=== PATIENT | male | born 1945 | race Caucasian/White ===

== ENCOUNTER 2019-01-22 06:16 | Inpatient (IN) | payer BC, MEDICARE, OTHER ==
[~2019-01-22] VITALS: Ht 172.7 cm; Wt 81.6 kg
[~2019-01-22 06:16] MED LIST: CELE100C PO; DULO30CA2 PO; FURO-152 PO; METH-490 PO; POTA20TA29 PO
[2019-01-22] MEDS ORDERED: [UNRECOGNIZED DRUG - REMARK] (06:23)
--- NOTE | 2019-01-22 06:30 | NUR ---
PT AMBULATORY W/ STABLE GAIT C/O SOB FOR 1WK PT ABLE TO SPEAK CLEAR AND COMPLETE SENTENCES, AOX4 DENIES FEVERS/CHILLS/N/V/D DENIES RECENT TRAVELS DENIES COUGHING + HX OF COPD AND ASTHMA, +EXPIRATORY WHEEZES ON BOTH LOWER LUNG ARREGUIN + SMOKER 2-3 PCS PER DAY SIDERAILSX2 UP BED AT LOWEST POSITION MONITORED ACCORDINGLY SPO2 AT 95-96%, RR AT 19 HR AT 82 BP AT 151/83MMHG
[2019-01-22] MEDS ORDERED: ALBUTEROL SULFATE 2.5 MG/3 ML NEBU NEB ONE (07:00)
[2019-01-22] MEDS ORDERED: methylPREDNISolone SOD SUCC 125 MG/2 ML VIAL IV ONE (07:00)
[2019-01-22] MEDS ORDERED: IPRATROPIUM BROMIDE 0.5 MG/2.5 ML NEBU NEB ONE (07:00)
[2019-01-22] MEDS ORDERED: methylPREDNISolone SOD SUCC 125 MG/2 ML VIAL ONE (07:09)
[2019-01-22] MEDS ORDERED: IPRATROPIUM BROMIDE 0.5 MG/2.5 ML NEBU ONE (07:11)
[2019-01-22] MEDS ORDERED: ALBUTEROL SULFATE 2.5 MG/ 0.5 ML NEBU ONE (07:11)
[2019-01-22 07:21] LABS: BASOPHILS # (AUTO) 0.1 K/uL (0.0-8.0); BASOPHILS % (AUTO) 1.2 % (0.0-2.0); EOSINOPHILS # (AUTO) 0.3 K/uL (0.0-0.7); EOSINOPHILS % (AUTO) 4.1 % (0.0-7.0); HEMATOCRIT 37.5 % (36.7-47.1); HEMOGLOBIN 12.8 g/dL (12.5-16.3); LYMPHOCYTES # (AUTO) 1.8 K/uL (20.0-40.0); LYMPHOCYTES % (AUTO) 25.4 % (20.5-51.5); MEAN CORPUSCULAR HEMOGLOBIN 30.1 uug (23.8-33.4); MEAN CORPUSCULAR HGB CONC 34 g/dL (32.5-36.3); MEAN CORPUSCULAR VOLUME 88.5 fL (73.0-96.2); MONOCYTES # (AUTO) 0.6 K/uL (2.0-10.0); MONOCYTES % (AUTO) 9.1 % (0.0-11.0); NEUTROPHILS # (AUTO) 4.3 K/uL (1.8-8.9); NEUTROPHILS % (AUTO) 60.2 % (38.5-71.5); PLATELET COUNT (AUTO) 249 K/uL (152-348); RED BLOOD CELL COUNT(AUTO) 4.24 MIL/uL (4.06-5.63); WHITE BLOOD COUNT (AUTO) 7.1 K/uL (3.6-10.2)
--- NOTE | 2019-01-22 07:22 | NUR ---
CONTROL TECHNICIAN AT BEDSIDE RT AT BEDSIDE
[2019-01-22 07:28] LABS: POTASSIUM 3.7 mmol/L (3.5-5.1)
--- NOTE | 2019-01-22 07:37 | NUR ---
HAND OFF AND SBAR GIVEN TO INCOMING DAY SHIFT RN (MAGAN) PT CURRENTLY RECEIVING BREATHING TX, ON POSITION OF COMFORT NOT IN DISTRESS MONITORED ACCORDINGLY
[2019-01-22 07:41] LABS: BILIRUBIN,DIRECT 0.1 mg/dL (0.0-0.2); BILIRUBIN,TOTAL 0.3 mg/dL (0.2-1.0); TOTAL PROTEIN, SERUM 6.9 g/dL (6.4-8.2)
[2019-01-22] MEDS ORDERED: HYDR12.5 PO (08:43)
[2019-01-22] MEDS ORDERED: LOSA25TA27 PO (08:43)
[2019-01-22] MEDS ORDERED: UMEC1BLS IH (08:43)
[2019-01-22] MEDS ORDERED: DEXT5TAB15 PO (08:43)
[2019-01-22] MEDS ORDERED: FLUT1DIS28 IH (08:43)
[2019-01-22] MEDS ORDERED: ACETAMINOPHEN 325 MG TABLET PO PRN (10:00)
[2019-01-22] MEDS ORDERED: ONDANSETRON 4 MG/2 ML VIAL IV PRN (10:00)
[2019-01-22] MEDS ORDERED: Z GUARD REMEDY PASTE 57 GM TUBE TOP PRN (10:00)
[2019-01-22] MEDS ORDERED: MAGNESIUM HYDROXIDE 30 ML LIQUID UDC PO PRN (10:00)
--- NOTE | 2019-01-22 10:40 | NUR ---
Patient received from ER Report taken from Nalini EVANS ; patient in stable condition with no signs of distress; Patient diagnosed with COPD ; Patient expressed he did not want any 02 given as he was not experiencing any SOB ; Patient saturation between 94-95% ; patient will continue to be monitored.
[2019-01-22 10:44] LABS: *BILIRUBIN,URIN NEGATIVE (NEGATIVE); *BLOOD, URINE NEGATIVE (NEGATIVE); *CLARITY,URINE CLEAR (CLEAR); *COLOR,URINE YELLOW (YELLOW); *KETONES,URINE NEGATIVE (NEGATIVE); *UROBILINOGEN,URINE 0.2 E.U./dl (NORMAL); LEUKOCYTE ESTERASE ,URINE NEGATIVE (NEGATIVE); NITRITE, URINE NEGATIVE (NEGATIVE); UGLUCOSE NEGATIVE (NEGATIVE)
[2019-01-22 11:07] LABS: *AMPHETAMINE, URINE POSITIVE (NEGATIVE); *BARBITURATE, URINE NEGATIVE (NEGATIVE); *CANNABINOID, URINE NEGATIVE (NEGATIVE); *COCCAINE, URINE NEGATIVE (NEGATIVE); *OPIATE, URINE NEGATIVE (NEGATIVE); *PHENCYCLIDINE SCREEN,URINE NEGATIVE (NEGATIVE)
[2019-01-22 11:17] VITALS: BP 144/90
[2019-01-22] MEDS: ALBUTEROL SULFATE 2.5 MG/3 ML NEBU NEB SCH ×4 (11:49→23:23)
[2019-01-22] MEDS: IPRATROPIUM BROMIDE 0.5 MG/2.5 ML NEBU NEB SCH ×4 (11:49→23:23)
[2019-01-22] MEDS: LEVOFLOXACIN 500 MG/D5W 500 MG in PREMIXED 1 EACH IV SCH (12:23)
[2019-01-22] MEDS: ENOXAPARIN SODIUM 40 MG/0.4 ML DISP.SYRIN SQ SCH (12:48)
[2019-01-22] MEDS: FLUTICASONE/VILANTEROL 1 EACH BLST.W.DEV INH SCH (12:48)
[2019-01-22] MEDS ORDERED: METH-490 PO (14:37)
[2019-01-22] MEDS: methylPREDNISolone SOD SUCC 40 MG/ML VIAL IV SCH ×2 (14:50→21:52)
[2019-01-22 15:43] VITALS: BP 143/74
[2019-01-22] MEDS ORDERED: FLUTICASONE/SALMETEROL 250/50 INHALER IH SCH (17:00)
[2019-01-22] MEDS ORDERED: methylPREDNISolone SOD SUCC 40 MG/ML VIAL IV SCH (17:00)
--- NOTE | 2019-01-22 17:59 | NUR ---
Patient calm and comfortable with no signs of distress through out shift; patient expressed he has narcolepsy and patient took multiple naps throughout shift. Patient at bedside at times; patient will continue to be monitored; Report given to oncoming nurse.
[2019-01-22] MEDS: LOSARTAN POTASSIUM 25 MG TABLET PO SCH (20:01)
[2019-01-22 20:26] VITALS: BP 162/88
[2019-01-22 21:17] VITALS: BP 135/75
[2019-01-23 01:21] VITALS: BP 142/84
[2019-01-23] MEDS: ALBUTEROL SULFATE 2.5 MG/3 ML NEBU NEB SCH ×6 (02:47→23:03)
[2019-01-23] MEDS: IPRATROPIUM BROMIDE 0.5 MG/2.5 ML NEBU NEB SCH ×6 (02:47→23:03)
[2019-01-23 04:45] VITALS: BP 132/75
[2019-01-23] MEDS: methylPREDNISolone SOD SUCC 40 MG/ML VIAL IV SCH ×3 (05:39→20:03)
--- NOTE | 2019-01-23 05:51 | NUR ---
Patient slept well throughout the night. No acute distress noted. Attended all needs. Ensured safety and comfort. No complaints made. No other untoward events noted. Will endorse accordingly.
[2019-01-23 06:10] LABS: BASOPHILS % (AUTO) 0.1 % (0.0-2.0); HEMATOCRIT 42.7 % (36.7-47.1); HEMOGLOBIN 14.1 g/dL (12.5-16.3); LYMPHOCYTES # (AUTO) 0.6 K/uL (20.0-40.0); LYMPHOCYTES % (AUTO) 4.6 % (20.5-51.5); MEAN CORPUSCULAR HEMOGLOBIN 29.1 uug (23.8-33.4); MEAN CORPUSCULAR HGB CONC 33 g/dL (32.5-36.3); MEAN CORPUSCULAR VOLUME 87.8 fL (73.0-96.2); MONOCYTES # (AUTO) 0.3 K/uL (2.0-10.0); MONOCYTES % (AUTO) 2.1 % (0.0-11.0); NEUTROPHILS # (AUTO) 11.8 K/uL (1.8-8.9); NEUTROPHILS % (AUTO) 93.2 % (38.5-71.5); PLATELET COUNT (AUTO) 302 K/uL (152-348); RED BLOOD CELL COUNT(AUTO) 4.86 MIL/uL (4.06-5.63); WHITE BLOOD COUNT (AUTO) 12.7 K/uL (3.6-10.2)
[2019-01-23 06:28] LABS: CREATININE 0.9 mg/dL (0.6-1.3); MAGNESIUM 1.7 mg/dL (1.8-2.4); PHOSPHOROUS 2.5 mg/dL (2.5-4.9); POTASSIUM 4.4 mmol/L (3.5-5.1)
[2019-01-23 06:46] LABS: THYROID STIMULATING HORMONE 0.178 mIU/mL (0.358-3.740)
[2019-01-23] MEDS: HYDROCHLOROTHIAZIDE 12.5 MG CAPSULE PO SCH (08:28)
[2019-01-23] MEDS: FLUTICASONE/VILANTEROL 1 EACH BLST.W.DEV INH SCH (08:28)
[2019-01-23] MEDS: LOSARTAN POTASSIUM 25 MG TABLET PO SCH ×2 (08:29→20:03)
[2019-01-23] MEDS: ENOXAPARIN SODIUM 40 MG/0.4 ML DISP.SYRIN SQ SCH (08:31)
[2019-01-23] MEDS ORDERED: AZITHROMYCIN 250 MG TABLET PO SCH (09:00)
--- NOTE | 2019-01-23 09:24 | NUR ---
MAG LEVEL IS 1.7 CARLEY AIR EXPORT COORDINATOR AWARE WITH NEW ORDER AND NOTED.
[2019-01-23] MEDS ORDERED: MAGNESIUM OXIDE 400 MG TABLET PO ONE (09:30)
[2019-01-23 11:20] VITALS: BP 140/86
[2019-01-23] MEDS: LEVOFLOXACIN 500 MG/D5W 500 MG in PREMIXED 1 EACH IV SCH (12:14)
--- NOTE | 2019-01-23 14:38 | NUR ---
DR LONG HERE TO SEE AND EXAMINE PATIENT WITH NEW ORDERS AND NOTED.
[2019-01-23 15:22] VITALS: BP 140/87
[2019-01-23] MEDS ORDERED: METHAMPHETAMINE HCL 5 MG PO SCH (16:30)
--- NOTE | 2019-01-23 17:04 | NUR ---
REMAIN ON ATB ORDERED WITH NO ADVERSE OR ALLERGIC REACTIONS AT THIS TIME ON ROOM AIR WITH NO SHPORTNESS OF BREATH MADE COMFORTABLE WILL CONTINUE TO OBSERVE.
--- NOTE | 2019-01-23 19:20 | NUR ---
Received pt awake, alert and orientedx4. Pt shows no signs of acute distress. Iv intact. Safety and comfort provided. Will continue to monitor.
[2019-01-23 20:19] VITALS: BP 134/85
--- NOTE | 2019-01-23 22:28 | NUR ---
Hands off report to Sridevi EVANS. Pt in no acute distress. Pt given his $100. Pt signed the belonging list. Safety and comfort provided. Will continue to monitor.
--- NOTE | 2019-01-23 22:30 | NUR ---
Received hand off report from nurse Mai. Received patient into care sitting up in bed, watching television. Patient has no complaints of pain or discomfort at this time. All safety and fall precaution measures are in place. Call light and personal items are within reach at all times. Will continue to monitor.
[2019-01-24 00:40] VITALS: BP 140/72
[2019-01-24] MEDS: IPRATROPIUM BROMIDE 0.5 MG/2.5 ML NEBU NEB SCH ×5 (02:50→19:12)
[2019-01-24] MEDS: ALBUTEROL SULFATE 2.5 MG/3 ML NEBU NEB SCH ×5 (02:50→19:12)
[2019-01-24 04:00] VITALS: BP 133/64
--- NOTE | 2019-01-24 06:04 | NUR ---
Patient slept intermittently throughout night with no complaints of [place] or discomfort verbalized. All nursing needs were met promptly. All safety and fall precaution measures remain in place. Call light and personal items remain within reach at all times.
[2019-01-24 06:52] LABS: CREATININE 0.8 mg/dL (0.6-1.3); MAGNESIUM 2.1 mg/dL (1.8-2.4); PHOSPHOROUS 3.4 mg/dL (2.5-4.9); POTASSIUM 4.1 mmol/L (3.5-5.1)
[2019-01-24 07:15] LABS: HEMATOCRIT 43.5 % (36.7-47.1); HEMOGLOBIN 14.4 g/dL (12.5-16.3); LYMPHOCYTES # (AUTO) 0.7 K/uL (20.0-40.0); LYMPHOCYTES % (AUTO) 3.8 % (20.5-51.5); MEAN CORPUSCULAR HEMOGLOBIN 29.4 uug (23.8-33.4); MEAN CORPUSCULAR HGB CONC 33 g/dL (32.5-36.3); MEAN CORPUSCULAR VOLUME 88.8 fL (73.0-96.2); MONOCYTES # (AUTO) 0.5 K/uL (2.0-10.0); MONOCYTES % (AUTO) 2.9 % (0.0-11.0); NEUTROPHILS # (AUTO) 17.2 K/uL (1.8-8.9); NEUTROPHILS % (AUTO) 93.3 % (38.5-71.5); PLATELET COUNT (AUTO) 299 K/uL (152-348)
[2019-01-24 07:29] LABS: WHITE BLOOD COUNT (AUTO) 18.4 K/uL (3.6-10.2)
--- NOTE | 2019-01-24 07:30 | NUR ---
RECEIVED PATIENT IN BED AWAKE ALERT AND ORIENTED ON ROOM AIR WITH NO SHORTNESS OF BREATH AT THIS TIME CONTINUE ON ATB ORDERED WITH S/S OF ADVERSE OR ALLERGIC REACTIONS AT THIS TIME.HAS OCCASSIONAL DRY COUGH UNABLE TO EXPECTORATE CALL LIGHTS AND PERSOANL BELONGINGS ARE WITHIN EASY REACH AT THIS TIME MADE COMFORTABLE AND WILL CONTINUE TO OBSERVE.
[2019-01-24] MEDS: methylPREDNISolone SOD SUCC 40 MG/ML VIAL IV SCH (08:30)
[2019-01-24] MEDS: HYDROCHLOROTHIAZIDE 12.5 MG CAPSULE PO SCH (08:30)
[2019-01-24] MEDS: LOSARTAN POTASSIUM 25 MG TABLET PO SCH (08:31)
[2019-01-24] MEDS: FLUTICASONE/VILANTEROL 1 EACH BLST.W.DEV INH SCH (08:32)
[2019-01-24] MEDS: ENOXAPARIN SODIUM 40 MG/0.4 ML DISP.SYRIN SQ SCH (08:42)
[2019-01-24] MEDS: LEVOFLOXACIN 500 MG/D5W 500 MG in PREMIXED 1 EACH IV SCH (11:25)
[2019-01-24 11:31] VITALS: BP 115/62
--- NOTE | 2019-01-24 11:56 | NUR ---
patient seen and examined by dr fernandes foam charger with order to d/d telemetry and noted.
--- NOTE | 2019-01-24 14:00 | NUR ---
SEEN BY CARLEY ALFARO STATED THAT SHE WILL KEEP PATIENT ONE MORE DAY TO OBSERVE HIM OFF THE IV STEROIDS PATIENT AWARE OF PLAN OF CARE.
[2019-01-24 15:26] VITALS: BP 140/83
--- NOTE | 2019-01-24 16:45 | NUR ---
RESTING WITH HAND HELD NEBULIZER IN PROGRESS ORDERED AND HELPFUL WILL CONTINUE TO OBSERVE.
[2019-01-24] MEDS ORDERED: prednisoLONE 15 MG/5 ML UDC PO SCH (17:00)
--- NOTE | 2019-01-24 18:38 | NUR ---
RESTING DENIES SHORTNESS OF BREATH VALERIA DINNER WITH NO C/O AT THIS TIME.
[2019-01-24 20:00] VITALS: BP 151/91
--- NOTE | 2019-01-24 20:10 | NUR ---
Patient notified nurse that he would like to "check out" of hospital. Nurse questioned patient reason for wanting to leave. Patient advised that his mom is in [facility] and is very ill. Nurse explained AMA without waiting for physician. Patient adamant to leave due to h is mom's illness. Patient was presented with AMA form and signed.
--- NOTE | 2019-01-24 20:38 | NUR ---
Patient left floor with sister. All belongings returned and signed for, including contraband and money from [employer]. IV site d/c'd.
== END 2019-01-24 20:56 | disposition left against medical advice (07) | DRG 192 ==
LOC: ER 06:20 → TELE3 10:19 → MEDSURG3 01-24 10:00
PROVIDERS: ADMIT Registered Nurse; ATTEND Registered Nurse
DX: J44.1 Chronic obstructive pulmonary disease with (acute) exacerbation (principal); J44.0 Chronic obstructive pulmonary disease with (acute) lower respiratory infection; J20.9 Acute bronchitis, unspecified; E66.9 Obesity, unspecified; Z68.27 Body mass index [BMI] 27.0-27.9, adult; K21.9 Gastro-esophageal reflux disease without esophagitis; G47.419 Narcolepsy without cataplexy; F32.9 Major depressive disorder, single episode, unspecified; F17.210 Nicotine dependence, cigarettes, uncomplicated; Z96.642 Presence of left artificial hip joint; D64.9 Anemia, unspecified; E11.9 Type 2 diabetes mellitus without complications; I70.0 Atherosclerosis of aorta; Z79.899 Other long term (current) drug therapy; Z87.01 Personal history of pneumonia (recurrent); I45.10 Unspecified right bundle-branch block; I10 Essential (primary) hypertension; D72.829 Elevated white blood cell count, unspecified; T38.0X5A Adverse effect of glucocorticoids and synthetic analogues, initial encounter; Y92.230 Patient room in hospital as the place of occurrence of the external cause
CPT/HCPCS: 36415; 70030-TC; 71045; 80307; 83735; 84100; 84443; 85025; 93005; 93307; 94640; 94664; A4663; G0378; J1650; J1956; J2920; J2930; J3590; J7030; J7050; J7510

== ENCOUNTER 2019-03-10 05:58 | Emergency (ER) | payer BC ==
[~2019-03-10] VITALS: Ht 172.7 cm; Wt 81.6 kg
[~2019-03-10 05:58] MED LIST changes: -CELE100C PO; +DEXT5TAB15 PO; -DULO30CA2 PO; +FLUT1DIS28 IH; -FURO-152 PO; +HYDR12.5 PO; +LOSA25TA27 PO; -POTA20TA29 PO; +UMEC1BLS IH
--- NOTE | 2019-03-10 06:05 | NUR ---
Dr. Salcedo at bedside for MSE
[2019-03-10] MEDS ORDERED: IPRATROPIUM BROMIDE 0.5 MG/2.5 ML NEBU NEB ONE (06:30)
[2019-03-10] MEDS ORDERED: ALBUTEROL SULFATE 2.5 MG/3 ML NEBU NEB ONE (06:30)
--- NOTE | 2019-03-10 06:33 | NUR ---
Respiratory at bedside.
[2019-03-10] MEDS ORDERED: ALBUTEROL SULFATE 2.5 MG/ 0.5 ML NEBU ONE (06:34)
[2019-03-10] MEDS ORDERED: IPRATROPIUM BROMIDE 0.5 MG/2.5 ML NEBU ONE (06:34)
[2019-03-10 06:45] LABS: BASOPHILS # (AUTO) 0.1 K/uL (0.0-8.0); BASOPHILS % (AUTO) 0.9 % (0.0-2.0); EOSINOPHILS # (AUTO) 0.4 K/uL (0.0-0.7); EOSINOPHILS % (AUTO) 5.6 % (0.0-7.0); HEMATOCRIT 41.6 % (36.7-47.1); HEMOGLOBIN 13.9 g/dL (12.5-16.3); LYMPHOCYTES # (AUTO) 1.9 K/uL (20.0-40.0); LYMPHOCYTES % (AUTO) 28.1 % (20.5-51.5); MEAN CORPUSCULAR HEMOGLOBIN 29.8 uug (23.8-33.4); MEAN CORPUSCULAR HGB CONC 33 g/dL (32.5-36.3); MEAN CORPUSCULAR VOLUME 89.4 fL (73.0-96.2); MONOCYTES # (AUTO) 0.7 K/uL (2.0-10.0); MONOCYTES % (AUTO) 10.2 % (0.0-11.0); NEUTROPHILS # (AUTO) 3.8 K/uL (1.8-8.9); NEUTROPHILS % (AUTO) 55.2 % (38.5-71.5); PLATELET COUNT (AUTO) 266 K/uL (152-348); RED BLOOD CELL COUNT(AUTO) 4.65 MIL/uL (4.06-5.63); WHITE BLOOD COUNT (AUTO) 6.8 K/uL (3.6-10.2)
[2019-03-10 06:47] LABS: CREATININE 0.9 mg/dL (0.6-1.3)
--- NOTE | 2019-03-10 06:49 | NUR ---
Dr. Salgado at bedside for MSE
[2019-03-10] MEDS ORDERED: predniSONE 20 MG TABLET ONE (06:52)
[2019-03-10] MEDS ORDERED: predniSONE 20 MG TABLET PO ONE (07:00)
--- NOTE | 2019-03-10 08:22 | NUR ---
Pt states feeling better, 02 sat on RA is 96% that per pt is "very good".
[2019-03-10 08:36] VITALS: BP 129/67
--- NOTE | 2019-03-10 08:36 | NUR ---
Patient discharged to home in stable conditon. Written and verbal after care instructions given. Patient verbalizes understanding of instructions.
== END 2019-03-10 08:36 | disposition home or self-care (01) ==
LOC: ER 06:00
DX: J44.1 Chronic obstructive pulmonary disease with (acute) exacerbation (principal); K21.9 Gastro-esophageal reflux disease without esophagitis; F32.9 Major depressive disorder, single episode, unspecified; F17.290 Nicotine dependence, other tobacco product, uncomplicated; Z79.899 Other long term (current) drug therapy
CPT/HCPCS: 36415; 80048; 85025; 87400; 93005; 94644; 99285; 99406; J7512; A4663; J3590

== ENCOUNTER 2021-04-30 16:57 | Inpatient (IN) | payer BC ==
[~2021-04-30] VITALS: Ht 170.2 cm; Wt 78.2 kg
[~2021-04-30 16:57] MED LIST changes: -UMEC1BLS IH
[2021-04-30] MEDS ORDERED: AMLO10TA59 PO (17:04)
[2021-04-30] MEDS ORDERED: FURO-152 PO (17:04)
[2021-04-30] MEDS ORDERED: ATOR40TA PO (17:04)
[2021-04-30] MEDS ORDERED: FLUT1BLS6 IH (17:05)
[2021-04-30] MEDS ORDERED: MORPHINE SULFATE 4 MG/1 ML DISP.SYRIN IV ONE (18:45)
[2021-04-30] MEDS ORDERED: ONDANSETRON 4 MG/2 ML VIAL IV ONE (18:45)
[2021-04-30] MEDS ORDERED: MORPHINE SULFATE 4 MG/1 ML DISP.SYRIN ONE (18:55)
[2021-04-30] MEDS ORDERED: ONDANSETRON 4 MG/2 ML VIAL ONE (18:55)
[2021-04-30 19:11] LABS: CARBON DIOXIDE 32 mmol/L (21-32); CHLORIDE 101 mmol/L (98-107); GLUCOSE 112 mg/dL (74-106); HEMATOCRIT 31.4 % (36.7-47.1); MEAN CORPUSCULAR HEMOGLOBIN 30.2 uug (23.8-33.4); MEAN CORPUSCULAR VOLUME 89.7 fL (73.0-96.2); PLATELET COUNT (AUTO) 355 K/uL (152-348); POTASSIUM 4.1 mmol/L (3.5-5.1); UREA NITROGEN, BLOOD 17 mg/dL (7-18)
[2021-04-30 19:25] LABS: ALANINE AMINOTRANSFERASE 27 U/L (16-63); ALKALINE PHOSPHATASE 95 U/L (50-136); ASPARTATE AMINOTRANSFERASE 13 U/L (15-37); BILIRUBIN,DIRECT 0.1 mg/dL (0.0-0.2); BILIRUBIN,TOTAL 0.4 mg/dL (0.2-1.0); TOTAL PROTEIN, SERUM 7.2 g/dL (6.4-8.2)
[2021-04-30] MEDS ORDERED: VANCOMYCIN 1G/D5W 200 ML PIGGYBACK IV ONE (19:30)
[2021-04-30] MEDS ORDERED: CEFTRIAXONE 1 G in IV DEXTROSE 5% 50 ML IV ONE (19:30)
[2021-04-30] MEDS ORDERED: CEFTRIAXONE /D5W 50ML IVPB **ER PYXIS IV ONE (19:48)
[2021-04-30 20:00] VITALS: BP 129/78
[2021-04-30] MEDS ORDERED: VANCOMYCIN IV 200 ML ONE (20:09)
[2021-04-30] MEDS ORDERED: ACETAMINOPHEN 325 MG TABLET PO PRN (20:15)
[2021-04-30] MEDS ORDERED: MAGNESIUM HYDROXIDE 30 ML LIQUID UDC PO PRN (20:15)
[2021-04-30] MEDS ORDERED: REMEDY ESSENTIAL ZINC PASTE 113 GM TP PRN (20:15)
[2021-04-30] MEDS ORDERED: ONDANSETRON 4 MG/2 ML VIAL IV PRN (20:15)
[2021-04-30] MEDS: ATORVASTATIN 40 MG TABLET PO SCH (22:29)
[2021-04-30] MEDS ORDERED: CEFEPIME HCL 1 G VIAL ONE (22:55)
[2021-04-30] MEDS: CEFEPIME HCL 2 G in IV DEXTROSE 5% 100 ML IV SCH (23:06)
[2021-05-01] VITALS: BP 136/76
[2021-05-01 04:00] VITALS: BP 123/71
[2021-05-01] MEDS ORDERED: CEFEPIME HCL 1 G VIAL ONE (06:21)
[2021-05-01 06:47] LABS: MEAN CORPUSCULAR HEMOGLOBIN 29.8 uug (23.8-33.4); MEAN CORPUSCULAR VOLUME 89.8 fL (73.0-96.2); PLATELET COUNT (AUTO) 322 K/uL (152-348)
[2021-05-01 07:23] LABS: CREATININE 0.8 mg/dL (0.6-1.3); MAGNESIUM 1.8 mg/dL (1.8-2.4); PHOSPHOROUS 3.4 mg/dL (2.5-4.9)
[2021-05-01] MEDS ORDERED: METHYLPHENIDATE HCL 5 MG TABLET PO ONE (07:30)
[2021-05-01] MEDS ORDERED: METHYLPHENIDATE HCL 5 MG TABLET PO SCH ×2 (07:30→11:30)
[2021-05-01] MEDS: CEFEPIME HCL 2 G in IV DEXTROSE 5% 100 ML IV SCH ×3 (07:35→21:22)
[2021-05-01] MEDS: HYDROCHLOROTHIAZIDE 12.5 MG CAPSULE PO SCH (08:47)
[2021-05-01] MEDS: FUROSEMIDE 40 MG/4 ML VIAL IV SCH (08:47)
[2021-05-01 08:50] VITALS: BP 99/49
[2021-05-01] MEDS: AMLODIPINE 10 MG TABLET PO SCH (08:53)
[2021-05-01 12:00] VITALS: BP 96/53
[2021-05-01] MEDS: VANCOMYCIN IV 1,250 MG in IV DEXTROSE 5% 250 ML IV SCH (12:32)
[2021-05-01 16:00] VITALS: BP 116/58
[2021-05-01] MEDS: TRELEGY ELLIPTA INHALER INH SCH (16:59)
[2021-05-01 20:18] VITALS: BP 108/62
[2021-05-01] MEDS: ATORVASTATIN 40 MG TABLET PO SCH (20:34)
[2021-05-02 00:12] VITALS: BP 103/55
[2021-05-02] MEDS: VANCOMYCIN IV 1,250 MG in IV DEXTROSE 5% 250 ML IV SCH ×2 (02:15→19:49)
[2021-05-02 04:21] VITALS: BP 120/70
[2021-05-02] MEDS: CEFEPIME HCL 2 G in IV DEXTROSE 5% 100 ML IV SCH ×3 (05:12→22:11)
[2021-05-02 07:14] LABS: HEMATOCRIT 29.4 % (36.7-47.1); MEAN CORPUSCULAR HEMOGLOBIN 30.5 uug (23.8-33.4); MEAN CORPUSCULAR VOLUME 88.9 fL (73.0-96.2); PLATELET COUNT (AUTO) 337 K/uL (152-348)
[2021-05-02 07:37] LABS: POTASSIUM 3.9 mmol/L (3.5-5.1)
[2021-05-02] MEDS ORDERED: METHAMPHETAMINE PO SCH ×2 (09:00→14:00)
[2021-05-02] MEDS: FUROSEMIDE 40 MG/4 ML VIAL IV SCH (09:26)
[2021-05-02] MEDS: HYDROCHLOROTHIAZIDE 12.5 MG CAPSULE PO SCH (09:26)
[2021-05-02] MEDS: TRELEGY ELLIPTA INHALER INH SCH (09:26)
[2021-05-02] MEDS: AMLODIPINE 10 MG TABLET PO SCH (09:27)
[2021-05-02 12:00] VITALS: BP 102/50
[2021-05-02] MEDS ORDERED: TRELEGY ELLIPTA INHALER INH SCH (14:01)
[2021-05-02 16:00] VITALS: BP 101/64
[2021-05-02] MEDS: ATORVASTATIN 40 MG TABLET PO SCH (20:29)
[2021-05-03] MEDS: CEFEPIME HCL 2 G in IV DEXTROSE 5% 100 ML IV SCH ×2 (05:06→14:10)
[2021-05-03 07:15] LABS: HEMATOCRIT 28.6 % (36.7-47.1); MEAN CORPUSCULAR HEMOGLOBIN 30.3 uug (23.8-33.4); MEAN CORPUSCULAR VOLUME 88.7 fL (73.0-96.2); PLATELET COUNT (AUTO) 351 K/uL (152-348)
[2021-05-03 07:55] LABS: CREATININE 0.7 mg/dL (0.6-1.3); POTASSIUM 3.6 mmol/L (3.5-5.1)
[2021-05-03] MEDS: AMLODIPINE 10 MG TABLET PO SCH (09:00)
[2021-05-03] MEDS: HYDROCHLOROTHIAZIDE 12.5 MG CAPSULE PO SCH (09:08)
[2021-05-03] MEDS: FUROSEMIDE 40 MG/4 ML VIAL IV SCH (09:09)
[2021-05-03] MEDS: VANCOMYCIN IV 1,250 MG in IV DEXTROSE 5% 250 ML IV SCH (11:12)
[2021-05-03 12:01] VITALS: BP 103/62
[2021-05-03] MEDS ORDERED: MUPIROCIN 2% OINT 22 GM TUBE NS SCH (12:21)
[2021-05-03] MEDS ORDERED: LEVO500T90 PO (17:34)
[2021-05-04] MEDS ORDERED: VANCOMYCIN IV 1,250 MG in IV DEXTROSE 5% 250 ML IV SCH ×2
== END 2021-05-03 18:40 | disposition home or self-care (01) | DRG 602 ==
LOC: ER 16:57 → TELE3 21:10 → MEDSURG3 05-02 09:10
PROVIDERS: ADMIT Family Medicine; ATTEND Family Medicine
DX: L03.116 Cellulitis of left lower limb (principal); J15.9 Unspecified bacterial pneumonia; J44.0 Chronic obstructive pulmonary disease with (acute) lower respiratory infection; E44.0 Moderate protein-calorie malnutrition; L03.115 Cellulitis of right lower limb; Z99.81 Dependence on supplemental oxygen; E11.65 Type 2 diabetes mellitus with hyperglycemia; Z68.27 Body mass index [BMI] 27.0-27.9, adult; Z86.74 Personal history of sudden cardiac arrest; Z20.822 Contact with and (suspected) exposure to COVID-19; D63.8 Anemia in other chronic diseases classified elsewhere; K21.9 Gastro-esophageal reflux disease without esophagitis; Z86.16 Personal history of COVID-19; F17.210 Nicotine dependence, cigarettes, uncomplicated; Z79.899 Other long term (current) drug therapy; F32.A Depression, unspecified; Z22.322 Carrier or suspected carrier of Methicillin resistant Staphylococcus aureus; D75.839 Thrombocytosis, unspecified; R60.0 Localized edema; I08.3 Combined rheumatic disorders of mitral, aortic and tricuspid valves; I45.10 Unspecified right bundle-branch block; I11.9 Hypertensive heart disease without heart failure; F90.9 Attention-deficit hyperactivity disorder, unspecified type; E78.5 Hyperlipidemia, unspecified
CPT/HCPCS: 36415; 71045; 83605; 83735; 84100; 84484; 85025; 85730; 87040; 93005; 93307; 97161; A4663; G0378; J0692; J0696; J1940; J2270; J2405; J3370; J7030; J7060

== ENCOUNTER 2021-06-10 18:23 | Emergency (ER) | payer BC ==
[~2021-06-10] VITALS: Ht 170.2 cm; Wt 80.7 kg
[~2021-06-10 18:23] MED LIST changes: +AMLO10TA59 PO; +ATOR40TA PO; -DEXT5TAB15 PO; +FLUT1BLS6 IH; -FLUT1DIS28 IH; +FURO-152 PO; +LEVO500T90 PO; -LOSA25TA27 PO
--- NOTE | 2021-06-10 18:50 | NUR ---
Patient ambulatory alert and oriented x4, complaints of bilateral lower ext itching and pain 6/10, redness noted. Patient with history of cellulititis, COPD. Vitals stable.
--- NOTE | 2021-06-10 18:51 | NUR ---
MD at bedside, medical screening exam in process.
[2021-06-10] MEDS ORDERED: PANT20TA2 PO (18:52)
[2021-06-10] MEDS ORDERED: DOXYCYCLINE HYCLATE 100 MG TABLET ONE (19:00)
[2021-06-10] MEDS ORDERED: DOXYCYCLINE HYCLATE 100 MG TABLET PO ONE (19:00)
[2021-06-10] MEDS ORDERED: SULFAMETH/TRIMETH 800/160 MG TABLET PO ONE (19:00)
[2021-06-10] MEDS ORDERED: ACETAMINOPHEN 325 MG TABLET PO ONE (19:00)
[2021-06-10] MEDS ORDERED: ACET325C7 PO (19:00)
[2021-06-10] MEDS ORDERED: SULFAMETH/TRIMETH 800/160 MG TABLET ONE (19:00)
[2021-06-10] MEDS ORDERED: SULF1TAB48 PO (19:00)
[2021-06-10] MEDS ORDERED: DOXY100T2 PO (19:00)
[2021-06-10] MEDS ORDERED: ACETAMINOPHEN 325 MG TABLET ONE (19:00)
--- NOTE | 2021-06-10 19:07 | NUR ---
DC, Rx and follow up instructions given and explained to patient who states he understands all instructions including to start PO abx tommorow morning as directed
[2021-06-10] MEDS ORDERED: diphenhydrAMINE 25 MG CAP PO ONE ×2 (19:09→19:15)
== END 2021-06-10 19:13 | disposition home or self-care (01) ==
LOC: ER 18:27
DX: L03.116 Cellulitis of left lower limb (principal); L03.115 Cellulitis of right lower limb; Z86.14 Personal history of Methicillin resistant Staphylococcus aureus infection; J44.9 Chronic obstructive pulmonary disease, unspecified; I10 Essential (primary) hypertension; K21.9 Gastro-esophageal reflux disease without esophagitis; G47.419 Narcolepsy without cataplexy; Z79.899 Other long term (current) drug therapy; F17.200 Nicotine dependence, unspecified, uncomplicated
CPT/HCPCS: 99284; Q0163; A4663

== ENCOUNTER 2022-06-07 20:25 | Inpatient (IN) | payer BC ==
[~2022-06-07] VITALS: Ht 172.7 cm; Wt 80.7 kg
[~2022-06-07 20:25] MED LIST changes: +ACET325C7 PO; +DOXY100T2 PO; -LEVO500T90 PO; +PANT20TA2 PO; +SULF1TAB48 PO
--- NOTE | 2022-06-07 20:30 | NUR ---
Dr. Michael in room examining patient.
[2022-06-07] MEDS ORDERED: IV NORMAL SALINE 250 ML IV ONE (21:26)
[2022-06-07] MEDS ORDERED: IOHEXOL 300MG/ML 100 ML INFUS..BTL ONE (21:26)
[2022-06-07] MEDS ORDERED: SWABABLE VALVE TRANSFER SET EA MC ONE (21:26)
[2022-06-07] MEDS ORDERED: IV NORMAL SALINE 1000 ML BAG IV ONE (21:30)
[2022-06-07] MEDS ORDERED: VANCOMYCIN IV 1,000 MG in IV DEXTROSE 5% 250 ML IV ONE (21:30)
[2022-06-07] MEDS ORDERED: PIPERACILLIN SODIUM/TAZOBACTAM 3.375 G in IV DEXTROSE 5% 50 ML IV ONE (21:30)
[2022-06-07] MEDS ORDERED: PIPERACILLIN/TAZOBACTAM/D5W 50 ML IV ONE (21:39)
[2022-06-07 21:44] LABS: HEMATOCRIT 36.8 % (36.7-47.1); MEAN CORPUSCULAR HEMOGLOBIN 27.9 uug (23.8-33.4); PLATELET COUNT (AUTO) 319 K/uL (152-348)
[2022-06-07 21:59] LABS: CARBON DIOXIDE 30 mmol/L (21-32); CHLORIDE 101 mmol/L (98-107); CREATININE 0.9 mg/dL (0.6-1.3); GLUCOSE 116 mg/dL (74-106); POTASSIUM 4.1 mmol/L (3.5-5.1); UREA NITROGEN, BLOOD 12 mg/dL (7-18)
[2022-06-07 22:06] LABS: ALANINE AMINOTRANSFERASE 22 U/L (16-63); ALKALINE PHOSPHATASE 102 U/L (50-136); ASPARTATE AMINOTRANSFERASE 11 U/L (15-37); BILIRUBIN,DIRECT 0.1 mg/dL (0.0-0.2); BILIRUBIN,TOTAL 0.3 mg/dL (0.2-1.0); TOTAL PROTEIN, SERUM 7.6 g/dL (6.4-8.2)
[2022-06-07] MEDS ORDERED: VANCOMYCIN IV 200 ML ONE (22:08)
[2022-06-07 23:10] LABS: *BILIRUBIN,URIN NEGATIVE (NEGATIVE); *BLOOD, URINE NEGATIVE (NEGATIVE); *CLARITY,URINE CLEAR (CLEAR); *COLOR,URINE YELLOW (YELLOW); *KETONES,URINE NEGATIVE (NEGATIVE); *UROBILINOGEN,URINE 0.2 E.U./dl (NORMAL); LEUKOCYTE ESTERASE ,URINE NEGATIVE (NEGATIVE); NITRITE, URINE NEGATIVE (NEGATIVE); PH,URINE 7.5 (5.0-8.0); UGLUCOSE NEGATIVE (NEGATIVE)
[2022-06-07] MEDS ORDERED: HYDROMORPHONE 1 MG/1 ML DISP.SYRIN IV ONE (23:15)
[2022-06-07] MEDS ORDERED: ONDANSETRON 4 MG/2 ML VIAL IV ONE (23:15)
[2022-06-07] MEDS ORDERED: ONDANSETRON 4 MG/2 ML VIAL ONE (23:22)
[2022-06-07] MEDS ORDERED: HYDROMORPHONE 1 MG/1 ML DISP.SYRIN ONE (23:23)
--- NOTE | 2022-06-07 23:40 | NUR ---
Patient is in bed resting comfortably. Patient's is @bedside.
--- NOTE | 2022-06-08 02:09 | NUR ---
Called third floor and recieved bed number [phone] from [facility].
--- NOTE | 2022-06-08 02:20 | NUR ---
Patient is in room sleeping comfortably.
--- NOTE | 2022-06-08 02:38 | NUR ---
Called third floor to give report. Was told to call back in 10 minutes.
--- NOTE | 2022-06-08 02:58 | NUR ---
Called third floor and gave report to Della EVANS.
--- NOTE | 2022-06-08 03:20 | NUR ---
Asked GABRIELE Brown to roll over patient.
--- NOTE | 2022-06-08 04:39 | NUR ---
Transferred patient to third floor via wheelchair. CRISTINA Hull made aware of patient's arrival.
--- NOTE | 2022-06-08 04:50 | NUR ---
Received patient from ER via wheelchair, alert and oriented x3, in no acute distress. Dx: Acute Cervical adenitis. RFA IV access intact and patent. Routine admission care rendered, oriented to room, TV, bathroom and call light. Care plan initiated. Needs assessed and attended to.
[2022-06-08 05:33] VITALS: BP 108/64
[2022-06-08] MEDS ORDERED: REMEDY ESSENTIAL ZINC PASTE 113 GM TP PRN (06:00)
[2022-06-08] MEDS ORDERED: ONDANSETRON 4 MG/2 ML VIAL IV PRN (06:00)
[2022-06-08] MEDS ORDERED: ALBUTEROL SULFATE 2.5 MG/ 0.5 ML NEBU NEB PRN (06:00)
[2022-06-08] MEDS: IV NS 1000 ML 1,000 ML IV PRN ×2 (06:20→23:29)
[2022-06-08] MEDS ORDERED: MORPHINE SULFATE 4 MG/1 ML DISP.SYRIN IV PRN (06:30)
[2022-06-08] MEDS ORDERED: PIPERACILLIN SODIUM/TAZOBACTAM 3.375 G in IV DEXTROSE 5% 50 ML IV ONE (07:00)
[2022-06-08] MEDS ORDERED: ALBUTEROL SULFATE 2.5 MG/3 ML NEBU NEB PRN ×2 (07:15)
[2022-06-08] MEDS: PIPERACILLIN SODIUM/TAZOBACTAM 3.375 G in IV DEXTROSE 5% 50 ML IV SCH ×3 (07:53→20:05)
[2022-06-08] MEDS: PANTOPRAZOLE SODIUM 40 MG VIAL IV SCH (08:03)
[2022-06-08] MEDS: MORPHINE SULFATE 2 MG/1 ML DISP.SYRIN IV PRN ×2 (11:26→22:14)
[2022-06-08] MEDS: VANCOMYCIN IV 1,250 MG in IV DEXTROSE 5% 250 ML IV SCH (11:29)
[2022-06-08] MEDS: FLUTICASONE/VILANTEROL 1 EACH BLST.W.DEV INH SCH (12:03)
[2022-06-08 15:43] VITALS: BP 102/62
[2022-06-08] MEDS ORDERED: LOSA25TA27 PO (15:46)
[2022-06-08] MEDS ORDERED: ASPI81TA31 PO (15:46)
[2022-06-08] MEDS ORDERED: VENL37.591 PO (15:46)
[2022-06-08 16:47] LABS: THYROID STIMULATING HORMONE 0.538 mIU/mL (0.358-3.740)
[2022-06-08 19:58] VITALS: BP 123/66
[2022-06-08] MEDS: ATORVASTATIN 20 MG TABLET PO SCH (20:45)
[2022-06-09] MEDS: PIPERACILLIN SODIUM/TAZOBACTAM 3.375 G in IV DEXTROSE 5% 50 ML IV SCH ×4 (02:15→21:39)
[2022-06-09] MEDS ORDERED: ALPRAZOLAM 0.5 MG TABLET PO ONE (02:45)
[2022-06-09] MEDS: VANCOMYCIN IV 1,250 MG in IV DEXTROSE 5% 250 ML IV SCH ×2 (04:00→21:35)
[2022-06-09 04:35] VITALS: BP 145/76
[2022-06-09 06:27] LABS: HEMATOCRIT 34.6 % (36.7-47.1); MEAN CORPUSCULAR HEMOGLOBIN 27.9 uug (23.8-33.4); MEAN CORPUSCULAR VOLUME 85.1 fL (73.0-96.2); PLATELET COUNT (AUTO) 308 K/uL (152-348)
[2022-06-09] MEDS ORDERED: SWABABLE VALVE TRANSFER SET EA MC ONE (06:35)
[2022-06-09] MEDS ORDERED: IV NORMAL SALINE 250 ML IV ONE (06:35)
[2022-06-09] MEDS ORDERED: IOHEXOL 300MG/ML 100 ML INFUS..BTL ONE (06:35)
[2022-06-09 06:54] LABS: ALANINE AMINOTRANSFERASE 20 U/L (16-63); ALKALINE PHOSPHATASE 86 U/L (50-136); ASPARTATE AMINOTRANSFERASE 14 U/L (15-37); BILIRUBIN,TOTAL 0.4 mg/dL (0.2-1.0); CARBON DIOXIDE 30 mmol/L (21-32); CHLORIDE 103 mmol/L (98-107); CREATININE 1.4 mg/dL (0.6-1.3); GLUCOSE 139 mg/dL (74-106); MAGNESIUM 1.7 mg/dL (1.8-2.4); PHOSPHOROUS 4.1 mg/dL (2.5-4.9); POTASSIUM 3.6 mmol/L (3.5-5.1); TOTAL PROTEIN, SERUM 6.7 g/dL (6.4-8.2); UREA NITROGEN, BLOOD 14 mg/dL (7-18)
--- NOTE | 2022-06-09 07:26 | NUR ---
Patient in stable condition. Slept intermittently, no acute distress noted. Instructed NPO post midnight for CT of head and CT of chest/abd/pelvis in the morning. Needs attended.
[2022-06-09 08:06] LABS: *IMMUNOGLOBULIN G, SERUM 1315 mg/dL (603-1613); IMMUNOGLOBULIN M, SERUM 43 mg/dL (15-143)
[2022-06-09] MEDS: PANTOPRAZOLE SODIUM 40 MG VIAL IV SCH (08:09)
[2022-06-09] MEDS: FLUTICASONE/VILANTEROL 1 EACH BLST.W.DEV INH SCH (08:25)
[2022-06-09] MEDS ORDERED: Medication Not On Formulary EA (Pantoprazole Sodium (Protonix) 1 TAB) PO SCH (09:00)
[2022-06-09] MEDS ORDERED: AMLODIPINE 10 MG TABLET PO SCH (09:00)
[2022-06-09 11:17] VITALS: BP 120/60
[2022-06-09] MEDS: IV NS 1000 ML 1,000 ML IV PRN (12:49)
[2022-06-09 13:07] LABS: A/G RATIO 0.7 (0.7-1.7); ALBUMIN 2.6 g/dL (2.9-4.4); ALPHA-1-GLOBULIN 0.4 g/dL (0.0-0.4); ALPHA-2-GLOBULIN 0.9 g/dL (0.4-1.0); BETA GLOBULIN 1.1 g/dL (0.7-1.3); GAMMA GLOBULIN 1.2 g/dL (0.4-1.8); GLOBULIN, TOTAL 3.6 g/dL (2.2-3.9); M-SPIKE Not Observed g/dL (Not Observed)
[2022-06-09] MEDS ORDERED: MAGNESIUM OXIDE 400 MG TABLET PO ONE (14:15)
[2022-06-09 15:20] VITALS: BP 119/62
[2022-06-09] MEDS ORDERED: LOSARTAN POTASSIUM 25 MG TABLET PO SCH (16:30)
[2022-06-09 20:00] VITALS: BP 128/71
--- NOTE | 2022-06-09 20:00 | NUR ---
RECD PT IN BED, AWAKE AND ALERT X4, NO ACUTE DISTRESS NOTED., IVF INFUSING WELL W/O ANY PROBLEMS, DUE MEDS GIVEN, VANCO LEVEL WAS 15.1, VOIDED FREELY WELL USING URINAL.SLEPT INTERMITTENTLY,
[2022-06-09] MEDS: FERROUS SULFATE 325 MG TABEC PO SCH (21:49)
[2022-06-09] MEDS: MORPHINE SULFATE 2 MG/1 ML DISP.SYRIN IV PRN (21:49)
--- NOTE | 2022-06-09 21:49 | NUR ---
MEDICATED FOR NECK PAIN ON L SIDE, RELIEF AFFORDED.IN GOOD SPIRITS, ASSISTED W/ HS CARE. KEPT WARM AND DRY.
[2022-06-09] MEDS: ATORVASTATIN 20 MG TABLET PO SCH (21:50)
[2022-06-09] MEDS: MUPIROCIN 2% OINT 22 GM TUBE NS SCH (21:54)
[2022-06-10] MEDS: PIPERACILLIN SODIUM/TAZOBACTAM 3.375 G in IV DEXTROSE 5% 50 ML IV SCH ×4 (02:13→20:33)
[2022-06-10 07:12] LABS: HEMATOCRIT 33.7 % (36.7-47.1); MEAN CORPUSCULAR HEMOGLOBIN 27.8 uug (23.8-33.4); MEAN CORPUSCULAR VOLUME 84.9 fL (73.0-96.2); PLATELET COUNT (AUTO) 306 K/uL (152-348)
[2022-06-10] MEDS: FLUTICASONE/VILANTEROL 1 EACH BLST.W.DEV INH SCH (08:13)
[2022-06-10] MEDS: PANTOPRAZOLE SODIUM 40 MG VIAL IV SCH (08:13)
[2022-06-10] MEDS: FERROUS SULFATE 325 MG TABEC PO SCH ×2 (08:13→20:28)
[2022-06-10] MEDS: MUPIROCIN 2% OINT 22 GM TUBE NS SCH ×2 (08:14→20:28)
[2022-06-10 08:57] LABS: CARBON DIOXIDE 30 mmol/L (21-32); CHLORIDE 104 mmol/L (98-107); CREATININE 1.2 mg/dL (0.6-1.3); GLUCOSE 110 mg/dL (74-106); POTASSIUM 3.6 mmol/L (3.5-5.1); UREA NITROGEN, BLOOD 12 mg/dL (7-18)
[2022-06-10 09:42] LABS: MAGNESIUM 1.8 mg/dL (1.8-2.4); PHOSPHOROUS 3.2 mg/dL (2.5-4.9)
[2022-06-10] MEDS: VANCOMYCIN IV 1,250 MG in IV DEXTROSE 5% 250 ML IV SCH (11:53)
[2022-06-10 16:00] VITALS: BP 147/87
[2022-06-10] MEDS: ATORVASTATIN 20 MG TABLET PO SCH (20:28)
[2022-06-10 20:38] VITALS: BP 133/64
[2022-06-10] MEDS: IV NS 1000 ML 1,000 ML IV PRN (20:52)
[2022-06-10] MEDS ORDERED: FUROSEMIDE 20 MG/2 ML VIAL IV ONE (22:00)
[2022-06-11] MEDS ORDERED: FUROSEMIDE 20 MG/2 ML VIAL IV ONE (02:15)
--- NOTE | 2022-06-11 02:15 | NUR ---
LASIX GIVENAT ORDERED.VOIDED FREELY WELL.. INSTRUCTED PT REGARDING DIURESIS.NO VOICED COMPLAINTS . SLEPT AT SHORT INTERVALS.
[2022-06-11] MEDS: PIPERACILLIN SODIUM/TAZOBACTAM 3.375 G in IV DEXTROSE 5% 50 ML IV SCH ×4 (02:20→20:25)
[2022-06-11] MEDS: VANCOMYCIN IV 1,250 MG in IV DEXTROSE 5% 250 ML IV SCH ×2 (03:28→21:29)
[2022-06-11 04:57] VITALS: BP 146/77
[2022-06-11 06:22] VITALS: BP 146/77
[2022-06-11 07:06] LABS: HEMATOCRIT 33.5 % (36.7-47.1); MEAN CORPUSCULAR HEMOGLOBIN 27.8 uug (23.8-33.4); MEAN CORPUSCULAR VOLUME 84.8 fL (73.0-96.2); PLATELET COUNT (AUTO) 351 K/uL (152-348)
[2022-06-11 07:18] LABS: CREATININE 1.2 mg/dL (0.6-1.3); POTASSIUM 3.2 mmol/L (3.5-5.1)
[2022-06-11] MEDS: FERROUS SULFATE 325 MG TABEC PO SCH ×2 (08:06→20:26)
[2022-06-11] MEDS: MUPIROCIN 2% OINT 22 GM TUBE NS SCH ×2 (08:06→21:29)
[2022-06-11] MEDS: FLUTICASONE/VILANTEROL 1 EACH BLST.W.DEV INH SCH (08:06)
[2022-06-11] MEDS: PANTOPRAZOLE SODIUM 40 MG VIAL IV SCH (08:07)
[2022-06-11] MEDS ORDERED: POTASSIUM CHLORIDE 20 MEQ TAB.PRT.SR PO ONE (09:00)
[2022-06-11 11:44] VITALS: BP 124/69
[2022-06-11 15:18] VITALS: BP 147/74
[2022-06-11] MEDS: ATORVASTATIN 20 MG TABLET PO SCH (20:26)
[2022-06-11 20:32] VITALS: BP 123/72
[2022-06-12] MEDS: PIPERACILLIN SODIUM/TAZOBACTAM 3.375 G in IV DEXTROSE 5% 50 ML IV SCH ×3 (02:48→13:18)
[2022-06-12 04:23] VITALS: BP 133/66
[2022-06-12] MEDS ORDERED: PANTOPRAZOLE SODIUM 40 MG TABLET.DR PO SCH (07:00)
--- NOTE | 2022-06-12 07:10 | NUR ---
pt received in bed awake no c/o pain noted call light with in reach ,all needs met at this time we will continue to monitor
[2022-06-12 07:53] LABS: HEMATOCRIT 33.5 % (36.7-47.1); MEAN CORPUSCULAR HEMOGLOBIN 27.9 uug (23.8-33.4); MEAN CORPUSCULAR VOLUME 84.4 fL (73.0-96.2); PLATELET COUNT (AUTO) 399 K/uL (152-348)
[2022-06-12 08:14] LABS: ALANINE AMINOTRANSFERASE 46 U/L (16-63); ALKALINE PHOSPHATASE 79 U/L (50-136); ASPARTATE AMINOTRANSFERASE 33 U/L (15-37); BILIRUBIN,TOTAL 0.4 mg/dL (0.2-1.0); CARBON DIOXIDE 29 mmol/L (21-32); CHLORIDE 102 mmol/L (98-107); CREATININE 1.3 mg/dL (0.6-1.3); GLUCOSE 105 mg/dL (74-106); MAGNESIUM 1.8 mg/dL (1.8-2.4); PHOSPHOROUS 3.6 mg/dL (2.5-4.9); POTASSIUM 3.2 mmol/L (3.5-5.1); TOTAL PROTEIN, SERUM 7.5 g/dL (6.4-8.2); UREA NITROGEN, BLOOD 9 mg/dL (7-18)
[2022-06-12] MEDS: MUPIROCIN 2% OINT 22 GM TUBE NS SCH (08:15)
[2022-06-12] MEDS: FERROUS SULFATE 325 MG TABEC PO SCH (08:15)
[2022-06-12] MEDS: FLUTICASONE/VILANTEROL 1 EACH BLST.W.DEV INH SCH (08:15)
[2022-06-12] MEDS ORDERED: POTASSIUM CHLORIDE 20 MEQ POWDER PACKET PO ONE (08:30)
--- NOTE | 2022-06-12 11:00 | NUR ---
pt went for mri to [facility] via ambulances in stable condition
[2022-06-12] MEDS ORDERED: POTASSIUM CHLORIDE 20 MEQ TAB.PRT.SR PO ONE (11:15)
--- NOTE | 2022-06-12 11:45 | NUR ---
Scheduled thyroid bx with pathology and radiologist for 06/13/ at 1.
--- NOTE | 2022-06-12 12:45 | NUR ---
pt received back from mri in stable condition ,lunch provided
[2022-06-12] MEDS: VANCOMYCIN IV 1,250 MG in IV DEXTROSE 5% 250 ML IV SCH (15:55)
[2022-06-12 16:00] VITALS: BP 112/78
--- NOTE | 2022-06-12 18:03 | NUR ---
in his room watching tv pt refused to eat dinner and said take the heplock i want to go home my is coming notified
[2022-06-12] MEDS ORDERED: AMOX-430 PO (18:50)
--- NOTE | 2022-06-12 19:11 | NUR ---
dc orders received noted and carried out,dc instruction given to the pt and his felipe sanderson per md orders,pt left the facility via private car in stable condition
== END 2022-06-12 19:10 | disposition home or self-care (01) | DRG 871 ==
LOC: ER 20:28 → MEDSURG3 22:36
PROVIDERS: ADMIT Nurse Practitioner Acute Care; ATTEND Internal Medicine
DX: A41.9 Sepsis, unspecified organism (principal); E43 Unspecified severe protein-calorie malnutrition; L03.221 Cellulitis of neck; N17.9 Acute kidney failure, unspecified; L04.0 Acute lymphadenitis of face, head and neck; J44.9 Chronic obstructive pulmonary disease, unspecified; J32.0 Chronic maxillary sinusitis; D50.9 Iron deficiency anemia, unspecified; E04.1 Nontoxic single thyroid nodule; R91.1 Solitary pulmonary nodule; G47.419 Narcolepsy without cataplexy; F32.A Depression, unspecified; K21.9 Gastro-esophageal reflux disease without esophagitis; R94.8 Abnormal results of function studies of other organs and systems; F17.210 Nicotine dependence, cigarettes, uncomplicated; E11.9 Type 2 diabetes mellitus without complications; Z20.822 Contact with and (suspected) exposure to COVID-19; Z99.81 Dependence on supplemental oxygen; Z96.642 Presence of left artificial hip joint; Z98.42 Cataract extraction status, left eye; Z98.41 Cataract extraction status, right eye; Z79.899 Other long term (current) drug therapy; D72.821 Monocytosis (symptomatic)
CPT/HCPCS: 36415; 70470; 70491; 71045; 71260; 82378; 82746; 82784; 83550; 83605; 83615; 83735; 84100; 84155; 84165; 84443; 84484; 85025; 85610; 85730; 86334; 87040; 93005; A4663; C9113; G0378; J1170; J1940; J2270; J2405; J2543; J3370; J7040; J7050; Q9967